=== PATIENT | female | born 2000 | race Caucasian/White ===

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

== ENCOUNTER → 2021-12-20 | Outpatient (REF) | LOC: M LAB 10:22 | PROVIDERS: ATTEND Nurse Practitioner Adult Health | DX: Z11.52 Encounter for screening for COVID-19 (principal) ==

== ENCOUNTER → 2022-03-14 | Outpatient (REF) ==
[2022-03-14 10:46] LABS: RSV AMPLIFICATION NEGATIVE (NEGATIVE)
== END ==
LOC: M EMP 09:35
PROVIDERS: ATTEND Family Medicine
DX: Z11.59 Encounter for screening for other viral diseases (principal)

== ENCOUNTER 2022-06-03 14:53 | Emergency (ER) | payer OTHER ==
[~2022-06-03] VITALS: Ht 177.8 cm; Wt 81.8 kg
[2022-06-03] MEDS ORDERED: KETOROLAC 30 MG/ML 1ML VIAL IM ONE (16:10)
[2022-06-03 17:16] VITALS: BP 129/72
== END 2022-06-03 17:20 | disposition home or self-care (01) ==
LOC: M ED 14:53
DX: S43.52XA Sprain of left acromioclavicular joint, initial encounter (principal); W50.2XXA Accidental twist by another person, initial encounter; Y99.2 Volunteer activity; Z88.8 Allergy status to other drugs, medicaments and biological substances; Z79.899 Other long term (current) drug therapy
CPT/HCPCS: 73030; 96372; 99283; J1885

== ENCOUNTER → 2023-01-06 | Outpatient (REF) | LOC: M EMP 13:35 | PROVIDERS: ATTEND Family Medicine | DX: Z11.52 Encounter for screening for COVID-19 (principal) ==

== ENCOUNTER → 2023-01-16 | Outpatient (REF) | payer OTHER | LOC: M LAB REF 14:29 | PROVIDERS: ATTEND Physician Assistant Medical | DX: B34.9 Viral infection, unspecified (principal) ==

== ENCOUNTER → 2023-02-25 | Outpatient (CLI) | payer OTHER ==
[2023-02-25 11:12] LABS: IMMUNOGLOBULIN A 341.5 MG/DL (40-350)
[2023-02-25 11:15] LABS: FREE T4 1.11 NG/DL (0.89-1.76); THYROID STIMULATING HORMONE 2.235 uIU/ML (0.55-4.78)
== END ==
LOC: M LAB 10:19
PROVIDERS: ATTEND Internal Medicine Gastroenterology
DX: R19.7 Diarrhea, unspecified (principal)

== ENCOUNTER → 2023-02-26 | Outpatient (REF) | payer OTHER | LOC: M LAB REF 14:15 | PROVIDERS: ATTEND Internal Medicine Gastroenterology | DX: R19.7 Diarrhea, unspecified (principal) ==

== ENCOUNTER 2023-03-12 10:40 | Day surgery (SDC) | payer OTHER ==
[~2023-03-12] VITALS: Ht 177.8 cm; Wt 79.0 kg
[~2023-03-12 10:40] MED LIST: FLUO40CA PO; NS 1,000 ML IV ONE; OMEP-173 PO; VELIPAK2 PO
[2023-03-12] MEDS ORDERED: propofoL 200 MG/20 ML VIAL As Ordered ONE (13:00)
[2023-03-12] MEDS ORDERED: LIDOCAINE 2% 100MG/5ML SDV (FOR ANES.) As Ordered ONE (13:00)
[2023-03-12] MEDS ORDERED: fentaNYL 100 MCG/2 ML INJECTION As Ordered ONE (13:00)
[2023-03-12 13:28] VITALS: TEMP 97.3
[2023-03-12 13:43] VITALS: BP 93/53; O2SAT 100
== END 2023-03-12 13:59 | disposition home or self-care (01) ==
LOC: M OPP 10:40
PROVIDERS: ATTEND Internal Medicine Gastroenterology
DX: K52.82 Eosinophilic colitis (principal); R19.7 Diarrhea, unspecified; R12 Heartburn; Z79.3 Long term (current) use of hormonal contraceptives
CPT/HCPCS: 43239; 45380; 88305; J3010

== ENCOUNTER → 2023-04-06 | Outpatient (REF) ==
[~2023-04-06] MED LIST changes: -NS 1,000 ML IV ONE
== END ==
LOC: M EMP 10:33
PROVIDERS: ATTEND Family Medicine
DX: Z11.52 Encounter for screening for COVID-19 (principal)

== ENCOUNTER → 2023-04-06 | Outpatient (REF) | LOC: M EMP 10:32 | PROVIDERS: ATTEND Family Medicine | DX: Z11.52 Encounter for screening for COVID-19 (principal) ==

== ENCOUNTER → 2023-05-08 | Outpatient (CLI) | payer OTHER ==
[2023-05-08 13:48] LABS: BASO # 0.1 10^3/uL (0.0-0.2); BASO % 0.4 % (0.0-1.0); EOS # 0.1 10^3/uL (0.0-0.5); EOS % 0.7 % (0.0-3.0); HEMATOCRIT 39.5 % (36.0-47.0); HEMOGLOBIN 12.8 g/dl (12.0-15.5); LYMPH # 3.1 10^3/uL (1.5-5.0); LYMPH % 19.2 % (24.0-44.0); MEAN CORPUSCULAR HEMOGLOBIN 29.2 pg (27.0-33.0); MEAN CORPUSCULAR HGB CONC 32.4 g/dl (32.0-36.5); MONO # 0.7 10^3/uL (0.0-0.8); MONO % 4.2 % (2.0-8.0); NEUTROPHILS % 75.1 % (36.0-66.0); PLATELET COUNT, AUTOMATED 268 10^3/uL (150-450); RED BLOOD COUNT 4.39 10^6/uL (4.00-5.40)
[2023-05-08 14:11] LABS: ALBUMIN 3.6 G/DL (3.2-5.2); ALKALINE PHOSPHATASE 71 U/L (46-116); ALT/SGPT 13 U/L (7.0-40); AST/SGOT 13 U/L (<34); BILIRUBIN,TOTAL 0.7 MG/DL (0.3-1.2); BLOOD UREA NITROGEN 12 MG/DL (9-23); CALCIUM LEVEL 9.6 MG/DL (8.5-10.1); CARBON DIOXIDE LEVEL 26 MMOL/L (20-31); CHLORIDE LEVEL 106 MMOL/L (98-107); CHOLESTEROL LEVEL 242 MG/DL (<200); CHOLESTEROL RISK RATIO 2.89 (<5); CREATININE FOR GFR 0.69 MG/DL (0.55-1.30); GLOMERULAR FILTRATION RATE > 60.0 (>60); GLUCOSE, FASTING 92 MG/DL (60-100); HDL CHOLESTEROL 83.7 MG/DL (>40); LDL CHOLESTEROL 116.7 MG/DL (<100); NON-HDL-C 158.3 MG/DL; POTASSIUM SERUM 3.7 MMOL/L (3.5-5.1); SODIUM LEVEL 138 MMOL/L (136-145); TOTAL PROTEIN 7.1 G/DL (5.7-8.2); TRIGLYCERIDES LEVEL 208 MG/DL (<150)
[2023-05-08 14:13] LABS: TOTAL 25(OH) VITAMIN D 49.5 NG/ML (20.0-100.0)
== END ==
LOC: M LAB 13:16
PROVIDERS: ATTEND Physician Assistant Medical
DX: E78.2 Mixed hyperlipidemia (principal)

== ENCOUNTER → 2023-05-08 | Outpatient (CLI) | payer OTHER ==
[2023-05-08 14:03] LABS: HEMOGLOBIN A1c 5.1 % (4.0-6.0)
== END ==
LOC: M LAB 13:19
PROVIDERS: ATTEND Student in an Organized Health Care Education/Training Program
DX: K52.9 Noninfective gastroenteritis and colitis, unspecified (principal)

== ENCOUNTER → 2023-05-14 | Outpatient (REF) | payer OTHER | LOC: M LAB REF 10:26 | PROVIDERS: ATTEND Internal Medicine Gastroenterology | DX: K52.832 Lymphocytic colitis (principal) ==

== ENCOUNTER → 2023-05-22 | Outpatient (REF) | payer OTHER | LOC: M LAB REF 10:09 | PROVIDERS: ATTEND Internal Medicine Gastroenterology | DX: A02.0 Salmonella enteritis (principal) ==

== ENCOUNTER → 2023-05-28 | Outpatient (REF) | payer OTHER | LOC: M LAB REF 11:23 | PROVIDERS: ATTEND Internal Medicine Gastroenterology | DX: A02.0 Salmonella enteritis (principal) ==

== ENCOUNTER → 2023-06-30 | Outpatient (CLI) | payer OTHER ==
[~2023-06-30] MED LIST changes: +LIDOCAINE 1% MDV 20ML VIAL As Ordered ONE; +methylPREDNISolone SUSP 40MG/ML 1ML VIAL (DEPO MEDROL) As Ordered ONE
== END ==
LOC: M IRPRO 13:15
PROVIDERS: ATTEND Physician Assistant Surgical
DX: M75.22 Bicipital tendinitis, left shoulder (principal)
CPT/HCPCS: 20550; 76942; J1010

== ENCOUNTER → 2023-07-21 | Outpatient (REF) | payer OTHER ==
[~2023-07-21] MED LIST changes: +BUDE3CAP5 PO; -LIDOCAINE 1% MDV 20ML VIAL As Ordered ONE; -methylPREDNISolone SUSP 40MG/ML 1ML VIAL (DEPO MEDROL) As Ordered ONE
== END ==
LOC: M LAB REF 10:39
PROVIDERS: ATTEND Internal Medicine Gastroenterology
DX: K52.832 Lymphocytic colitis (principal)

== ENCOUNTER 2023-07-23 12:48 | Day surgery (SDC) | payer OTHER ==
[~2023-07-23] VITALS: Ht 177.8 cm; Wt 82.1 kg
[2023-07-23] MEDS: NS 1,000 ML IV ONE (13:25)
[2023-07-23] MEDS ORDERED: LIDOCAINE 2% 100MG/5ML SDV (FOR ANES.) As Ordered ONE (13:45)
[2023-07-23] MEDS ORDERED: propofoL 200 MG/20 ML VIAL As Ordered ONE (13:45)
[2023-07-23] MEDS ORDERED: GLYCOPYRROLATE INJ 0.2 MG/ML 2 ML VIAL As Ordered ONE (14:37)
[2023-07-23 15:06] VITALS: TEMP 97.4
[2023-07-23 15:18] VITALS: BP 142/69; O2SAT 100
== END 2023-07-23 15:31 | disposition home or self-care (01) ==
LOC: M OPP 12:48
PROVIDERS: ATTEND Internal Medicine Gastroenterology
DX: K63.89 Other specified diseases of intestine (principal); R19.7 Diarrhea, unspecified; Z79.51 Long term (current) use of inhaled steroids; Z79.3 Long term (current) use of hormonal contraceptives; Z79.899 Other long term (current) drug therapy; Z88.8 Allergy status to other drugs, medicaments and biological substances

== ENCOUNTER → 2023-10-26 | Outpatient (REF) | LOC: M EMP 09:33 | PROVIDERS: ATTEND Family Medicine | DX: Z11.52 Encounter for screening for COVID-19 (principal) ==

== ENCOUNTER 2024-03-07 21:49 | Emergency (ER) | payer OTHER ==
[~2024-03-07] VITALS: Ht 177.8 cm; Wt 80.5 kg
[~2024-03-07 21:49] MED LIST changes: -DOCU100T8 PO; -MIRA3350 PO; -NITR100C2
[2024-03-07] MEDS ORDERED: NITR100C2 (21:55)
[2024-03-07 22:25] LABS: KETONE, URINE AUTO RFX NEGATIVE (NEGATIVE); NITRITE, URINE AUTO RFX NEGATIVE (NEGATIVE); RBC, URINE AUTO RFX 143 /HPF (0-3); SQUAM EPITHELIAL CELL UR AURFX 1 /HPF (0-6)
[2024-03-07 22:26] LABS: LEUKOCYTE ESTERASE UR AUTO RFX 3+ (NEGATIVE); WBC, URINE AUTO RFX TNTC /HPF (0-3)
[2024-03-07 22:44] LABS: BASO % 0.3 % (0.0-1.0); EOS # 0.1 10^3/uL (0.0-0.5); EOS % 0.8 % (0.0-3.0); HEMOGLOBIN 11.4 g/dl (12.0-15.5); LYMPH # 2.8 10^3/uL (1.5-5.0); LYMPH % 21.2 % (24.0-44.0); MEAN CORPUSCULAR HEMOGLOBIN 28.5 pg (27.0-33.0); MEAN CORPUSCULAR HGB CONC 32.6 g/dl (32.0-36.5); MEAN CORPUSCULAR VOLUME 87.5 fl (80.0-96.0); MONO # 0.9 10^3/uL (0.0-0.8); MONO % 6.5 % (2.0-8.0); NEUTROPHILS # 9.4 10^3/uL (1.5-8.5); NEUTROPHILS % 70.8 % (36.0-66.0); PLATELET COUNT, AUTOMATED 252 10^3/uL (150-450); WHITE BLOOD COUNT 13.2 10^3/uL (4.0-10.0)
[2024-03-07] MEDS: ACETAMINOPHEN 500 MG TAB PO ONE (22:47)
[2024-03-07] MEDS: NS (Normal Saline) 0.9% 1,000 ML IV ONE (23:00)
[2024-03-07 23:04] LABS: HCG, SERUM QUALITATIVE NEGATIVE (NEGATIVE)
[2024-03-07 23:15] LABS: LIPASE 30 U/L (12-53)
[2024-03-07 23:17] LABS: ALBUMIN 3.5 G/DL (3.2-5.2); ALKALINE PHOSPHATASE 59 U/L (35-104); ALT/SGPT 13 U/L (7.0-40); AST/SGOT 10 U/L (<34); BILIRUBIN,DIRECT 0.1 MG/DL (<0.4); BILIRUBIN,TOTAL 0.5 MG/DL (0.3-1.2); BLOOD UREA NITROGEN 14 MG/DL (9-23); CARBON DIOXIDE LEVEL 24 MMOL/L (20-31); CHLORIDE LEVEL 108 MMOL/L (98-107); CREATININE FOR GFR 0.76 MG/DL (0.55-1.30); GLOMERULAR FILTRATION RATE > 60.0 (>60); GLUCOSE, FASTING 119 MG/DL (60-100); POTASSIUM SERUM 3.3 MMOL/L (3.5-5.1); SODIUM LEVEL 143 MMOL/L (136-145); TOTAL PROTEIN 6.9 G/DL (5.7-8.2)
[2024-03-07] MEDS: cefTRIAXone SOD 1 GM in DEXTROSE 5% (D5W) ADV/MINI-BAG 50 ML IV ONE (23:17)
[2024-03-08] MEDS ORDERED: ISOVUE-370 76% 100ML VIAL As Ordered ONE (01:32)
[2024-03-08] MEDS: POTASSIUM CHLORIDE 10MEQ SR TABLET PO ONE (01:35)
[2024-03-08] MEDS ORDERED: DOCU100T8 PO (02:05)
[2024-03-08] MEDS ORDERED: MIRA3350 PO (02:05)
[2024-03-08 02:51] VITALS: BP 126/78; TEMP 98.9; O2SAT 99
== END 2024-03-08 02:52 | disposition home or self-care (01) ==
LOC: M ED 21:49
DX: N30.00 Acute cystitis without hematuria (principal); K59.00 Constipation, unspecified; J45.909 Unspecified asthma, uncomplicated; K58.9 Irritable bowel syndrome, unspecified; F10.10 Alcohol abuse, uncomplicated; Z88.8 Allergy status to other drugs, medicaments and biological substances; Z79.899 Other long term (current) drug therapy
CPT/HCPCS: 74177; 76775; 80048; 80076; 81001; 83605; 83690; 84703; 85025; 87040; 87088; 87186; 96374; 99284; J0696; Q9967

== ENCOUNTER → 2024-03-07 | Outpatient (REF) | payer OTHER ==
[~2024-03-07] MED LIST changes: +DOCU100T8 PO; +MIRA3350 PO; +NITR100C2
[2024-03-07 16:53] LABS: APPEARANCE, URINE HAZY (CLEAR); BACTERIA, URINE AUTO 1+ (NEGATIVE); BILIRUBIN, URINE AUTO NEGATIVE (NEGATIVE); BLOOD, URINE BLOOD 2+ (NEGATIVE); COLOR, URINE YELLOW (YELLOW); GLUCOSE, URINE (UA) AUTO NEGATIVE (NEGATIVE); KETONE, URINE AUTO NEGATIVE (NEGATIVE); LEUKOCYTE ESTERASE, URINE AUTO 3+ (NEGATIVE); NITRITE, URINE AUTO NEGATIVE (NEGATIVE); PROTEIN, URINE AUTO 1+ mg/dL (NEGATIVE); RBC, URINE AUTO 6 /HPF (0-3); SPECIFIC GRAVITY URINE AUTO 1.012 (1.002-1.035); SQUAMOUS EPITHELIAL CELL UR AU 2 /HPF (0-6); UROBILINOGEN, URINE AUTO 0.2 mg/dL (0.0-2.0); WBC, URINE AUTO 153 /HPF (0-3)
== END ==
LOC: M LAB REF 16:11
PROVIDERS: ATTEND Physician Assistant Medical
DX: N39.0 Urinary tract infection, site not specified (principal)

== ENCOUNTER → 2024-04-15 | Outpatient (REF) | payer OTHER ==
[~2024-04-15] MED LIST changes: +DOCU100T8 PO; +MIRA3350 PO; +NITR100C2
== END ==
LOC: M LAB REF 10:42
PROVIDERS: ATTEND Internal Medicine Gastroenterology
DX: A04.72 Enterocolitis due to Clostridium difficile, not specified as recurrent (principal); R19.7 Diarrhea, unspecified; A09 Infectious gastroenteritis and colitis, unspecified

== ENCOUNTER 2024-05-06 08:54 | Day surgery (SDC) | payer OTHER ==
[~2024-05-06] VITALS: Ht 177.8 cm; Wt 79.7 kg
[~2024-05-06 08:54] MED LIST changes: +GABA-1171 PO
[2024-05-06] MEDS ORDERED: GLYCOPYRROLATE INJ 0.2 MG/ML 2 ML VIAL As Ordered ONE (10:03)
[2024-05-06] MEDS ORDERED: LIDOCAINE 2% 100MG/5ML SDV (FOR ANES.) As Ordered ONE (10:03)
[2024-05-06] MEDS ORDERED: propofoL 200 MG/20 ML VIAL As Ordered ONE (10:03)
[2024-05-06 10:55] VITALS: TEMP 97
[2024-05-06 11:16] VITALS: BP 122/65; O2SAT 100
== END 2024-05-06 11:22 | disposition home or self-care (01) ==
LOC: M OPP 08:54
PROVIDERS: ATTEND Internal Medicine Gastroenterology
DX: K52.839 Microscopic colitis, unspecified (principal); R19.7 Diarrhea, unspecified; Z88.8 Allergy status to other drugs, medicaments and biological substances; Z79.899 Other long term (current) drug therapy
CPT/HCPCS: 45380; 87507; 88305; J1596

== ENCOUNTER → 2024-11-05 | Outpatient (CLI) | payer OTHER | LOC: M RAD 14:30 | PROVIDERS: ATTEND Physician Assistant Surgical | DX: M54.12 Radiculopathy, cervical region (principal) ==

== ENCOUNTER → 2024-11-16 | Outpatient (CLI) | payer OTHER | LOC: M RAD 15:58 | PROVIDERS: ATTEND Physician Assistant | DX: M41.34 Thoracogenic scoliosis, thoracic region (principal); M41.86 Other forms of scoliosis, lumbar region ==